=== PATIENT | male | born 1990 | race Hispanic/Latino ===

== ENCOUNTER 2020-04-25 22:41 | Emergency (ER) | payer BC ==
[2020-04-25] MEDS ORDERED: HYDROCODONE/APAP 7.5/325 MG TAB ONE (23:06)
--- NOTE | 2020-04-26 00:11 | ER ---
Nurse's Notes [facility] Name: Max Ortega Age: 30 yrs Sex: Male : 1990 Arrival Date: 04/25/2020 Time: 22:43 Bed 19 Private MD: ALEXANDRA ARMENTA Diagnosis: Sprain right ankle Presentation: 04/25 22:55 Chief complaint: Patient states: he was walking "angrily" to catch his dogs which had bb escaped when he twisted his ankle causing him to fall incident happened approx 20 mins [employer] pt c/o right ankle pain. Coronavirus screen: At this time, the client does not indicate any symptoms associated with coronavirus-19. Ebola Screen: No symptoms or risks identified at this time. Initial Sepsis Screen: Does the patient meet any 2 criteria? No. Patient's initial sepsis screen is negative. Does the patient have a suspected source of infection? No. Patient's initial sepsis screen is negative. Risk Assessment: Do you want to hurt yourself or someone else? Patient reports no desire to harm self or others. Onset of symptoms was April 25, 2020. 22:55 Method Of Arrival: Wheelchair bb 22:55 Acuity: MARY 4 bb Triage Assessment: 23:00 General: Appears in no apparent distress. uncomfortable, Behavior is calm, cooperative, rr5 appropriate for age. Historical: - Allergies: 22:58 No Known Allergies; bb - Home Meds: 22:58 Metoprolol Tartrate Oral [Active]; claritan [Active]; Zyrtec Oral [Active]; bb - PMHx: 22:58 Hypertension; seasonal allergies; bb - PSHx: 22:58 Knee surgery; bb - Immunization history:: Adult Immunizations up to date. - Social history:: Smoking status: Patient reports the use of cigarette tobacco products, denies chronic smoking, but will smoke occasionally, cigars, Patient uses alcohol, Patient/guardian denies using street drugs. Screenin:00 Abuse screen: Denies threats or abuse. Denies injuries from another. Nutritional rr5 screening: No deficits noted. Tuberculosis screening: No symptoms or risk factors identified. Fall Risk Fall in past 12 months (25 points). Total Luz Fall Scale indicates Low Risk Score (25-44 pts). Fall prevention measures have been instituted. Side Rails Up X 2 Frequent Obs/Assesments occuring Family Present and informed to notify staff if they need to leave bedside As available Patient and Family Educated on Fall Prevention Program and strategies. Assessment: 23:00 General: Appears in no apparent distress. uncomfortable, Behavior is calm, cooperative, rr5 appropriate for age. 23:00 Pain: Complains of pain in right ankle Pain currently is 5 out of 10 on a pain scale. rr5 Quality of pain is described as aching, Pain began suddenly, Is intermittent. Neuro: Level of Consciousness is awake, alert, obeys commands, Oriented to person, place, time, situation. Cardiovascular: Capillary refill < 3 seconds Patient's skin is warm and dry. Respiratory: Airway is patent Respiratory effort is even, unlabored, Respiratory pattern is regular, symmetrical. GI: No signs and/or symptoms were reported involving the gastrointestinal system. : No signs and/or symptoms were reported regarding the genitourinary system. EENT: No signs and/or symptoms were reported regarding the EENT system. Derm: Skin is intact, is healthy with good turgor, Skin temperature is warm. Musculoskeletal: Capillary refill < 3 seconds, Swelling present in right ankle. 04/26 00:00 Reassessment: Patient appears in no apparent distress at this time. Patient is alert, rr5 oriented x 3, equal unlabored respirations, skin warm/dry/pink. awaiting for Xray result. 00:47 Reassessment: Patient appears in no apparent distress at this time. Patient is alert, rr5 oriented x 3, equal unlabored respirations, skin warm/dry/pink. discharge instruction given and explained without complaints made. Vital Signs: 04/25 22:55 BP 154 / 86; Pulse 95; Resp 16 S; Temp 98.1(O); Pulse Ox 100% on R/A; Weight 158.76 kg bb (R); Height 6 ft. 0 in. (182.88 cm) (R); Pain 6/10; 04/26 00:00 BP 121 / 75; Pulse 90; Resp 19; Pulse Ox 99% ; rr5 00:30 BP 131 / 62; Pulse 85; Resp 17; Pulse Ox 99% ; rr5 04/25 22:55 Body Mass Index 47.47 (158.76 kg, 182.88 cm) bb ED Course: 04/25 22:43 Patient arrived in ED. am2 22:43 ALEXANDRA ARMENTA is Private Physician. am2 22:47 Ildefonso River MD is Attending Physician. pkbrian 22:53 Lenny Shah, RN is Primary Nurse. rr5 22:57 Triage completed. bb 22:58 Arm band placed on Patient placed in an exam room, on a stretcher, on pulse oximetry. bb Family accompanied patient. 23:00 Patient has correct armband on for positive identification. Bed in low position. Call rr5 light in reach. 23:23 Ankle Right 3 View XRAY In Process Unspecified. EDMS 04/26 00:40 Orthoglass splint: Posterior short lleg splint applied on right leg. oe 00:48 No provider procedures requiring assistance completed. Patient did not have IV access rr5 during this emergency room visit. Administered Medications: 04/25 22:55 Drug: [place] (7.5 mg-325 mg) 1 tabs {Note: rass 0.} Route: PO; rr5 04/26 00:50 Follow up: Response: No adverse reaction; Pain is decreased; RASS: Alert and Calm (0) rr5 Outcome: 00:10 Discharge ordered by . pkl 00:40 Discharged to home ambulatory, via wheelchair, with crutches. rr5 00:40 Condition: stable rr5 00:40 Discharge instructions given to patient, Instructed on discharge instructions, follow up and referral plans. Demonstrated understanding of instructions, follow-up care. 00:41 Patient left the ED. rr5 Signatures: Dispatcher [employer] EDSC Ildefonso River MD MD pkAria Lora, RN RN Otoniel Gandhi Amanda am2 Lenny Shah, RN RN rr5
--- NOTE | 2020-04-26 00:12 | EDPHYS ---
Physician Documentation [facility] Name: Max Ortega Age: 30 yrs Sex: Male : 1990 Arrival Date: 04/25/2020 Time: 22:43 Bed 19 Private MD: ALEXANDRA ARMENTA ED Physician Ildefonso River HPI: 04/26 00:03 This 30 yrs old Male presents to ER via Wheelchair with complaints of Ankle pkl Injury. 00:03 The patient presents with an injury, pain, that is acute. Onset: The symptoms/episode pkl began/occurred just prior to arrival. Context: resulted from the patient falling, twisted his right ankle. Associated signs and symptoms: The patient has no apparent associated signs or symptoms. Historical: - Allergies: 04/25 22:58 No Known Allergies; bb - Home Meds: 22:58 Metoprolol Tartrate Oral [Active]; claritan [Active]; Zyrtec Oral [Active]; bb - PMHx: 22:58 Hypertension; seasonal allergies; bb - PSHx: 22:58 Knee surgery; bb - Immunization history:: Adult Immunizations up to date. - Social history:: Smoking status: Patient reports the use of cigarette tobacco products, denies chronic smoking, but will smoke occasionally, cigars, Patient uses alcohol, Patient/guardian denies using street drugs. ROS: 04/26 00:03 Eyes: Negative for injury, pain, redness, and discharge, ENT: Negative for injury, pkl pain, and discharge, Neck: Negative for injury, pain, and swelling, Cardiovascular: Negative for chest pain, palpitations, and edema, Respiratory: Negative for shortness of breath, cough, wheezing, and pleuritic chest pain, Abdomen/GI: Negative for abdominal pain, nausea, vomiting, diarrhea, and constipation, Back: Negative for injury and pain, : Negative for injury, bleeding, discharge, and swelling, Skin: Negative for injury, rash, and discoloration. MS/extremity: Positive for pain, swelling, tenderness, of the right ankle. Exam: 00:03 Head/Face: Normocephalic, atraumatic. Eyes: Pupils equal round and reactive to light, pkl extra-ocular motions intact. Lids and lashes normal. Conjunctiva and sclera are non-icteric and not injected. Cornea within normal limits. Periorbital areas with no swelling, redness, or edema. ENT: Nares patent. No nasal discharge, no septal abnormalities noted. Tympanic membranes are normal and external auditory canals are clear. Oropharynx with no redness, swelling, or masses, exudates, or evidence of obstruction, uvula midline. Mucous membranes moist. Neck: Trachea midline, no thyromegaly or masses palpated, and no cervical lymphadenopathy. Supple, full range of motion without nuchal rigidity, or vertebral point tenderness. No Meningismus. Chest/axilla: Normal chest wall appearance and motion. Nontender with no deformity. No lesions are appreciated. Cardiovascular: Regular rate and rhythm with a normal S1 and S2. No gallops, murmurs, or rubs. Normal PMI, no JVD. No pulse deficits. Respiratory: Lungs have equal breath sounds bilaterally, clear to auscultation and percussion. No rales, rhonchi or wheezes noted. No increased work of breathing, no retractions or nasal flaring. Abdomen/GI: Soft, non-tender, with normal bowel sounds. No distension or tympany. No guarding or rebound. No evidence of tenderness throughout. Back: No spinal tenderness. No costovertebral tenderness. Full range of motion. Skin: Warm, dry with normal turgor. Normal color with no rashes, no lesions, and no evidence of cellulitis. Neuro: Awake and alert, GCS 15, oriented to person, place, time, and situation. Cranial nerves II-XII grossly intact. Motor strength 5/5 in all extremities. Sensory grossly intact. Cerebellar exam normal. Normal gait. 00:03 Musculoskeletal/extremity: Extremities: grossly normal except: noted in the right ankle: pain, swelling, tenderness. Vital Signs: 04/25 22:55 BP 154 / 86; Pulse 95; Resp 16 S; Temp 98.1(O); Pulse Ox 100% on R/A; Weight 158.76 kg bb (R); Height 6 ft. 0 in. (182.88 cm) (R); Pain /10; 04/26 00:00 BP 121 / 75; Pulse 90; Resp 19; Pulse Ox 99% ; rr5 00:30 BP 131 / 62; Pulse 85; Resp 17; Pulse Ox 99% ; rr5 04/25 22:55 Body Mass Index 47.47 (158.76 kg, 182.88 cm) bb Procedures: 00:03 Splinting: Splint applied to right ankle using short leg posterior splint. applied by [facility] nurse. Examined by me, post splint application: neurovascular intact, 2+ distal pulses palpable, brisk capillary refill noted, Patient tolerated well. MDM: 04/25 22:47 Patient medically screened. pk 04/26 00:03 Data reviewed: vital signs, nurses notes, radiologic studies, plain films. [facility] 04/25 22:53 Order name: Ankle Right 3 View XRAY pk 04/26 00:02 Order name: Splint - Ankle: Posterior; Complete Time: 00:38 pkl 04/26 00:02 Order name: Crutches; Complete Time: 00:38 pk Administered Medications: 04/25 22:55 Drug: [place] (7.5 mg-325 mg) 1 tabs {Note: rass 0.} Route: PO; rr5 04/26 00:50 Follow up: Response: No adverse reaction; Pain is decreased; RASS: Alert and Calm (0) rr5 Disposition: 04/26/20 00:10 Discharged to Home. Impression: Sprain right ankle. - Condition is Stable. - Prescriptions for Ultram 50 mg Oral Tablet - take 1 tablet by ORAL route every 8 hours As needed; 15 tablet. - Medication Reconciliation Form, Thank You Letter, Antibiotic Education, Prescription Opioid Use, Work release form form. - Follow up: Private Physician; When: 2 - 3 days; Reason: Re-evaluation by your physician. - Problem is new. - Symptoms have improved. Signatures: Dispatcher [employer] EDOK Ildefonso River MD MD Aria Lora, RN RN Lenny Diaz, RN RN rr5 Corrections: (The following items were deleted from the chart) 00:41 00:10 04/26/2020 00:10 Discharged to Home. Impression: Sprain right ankle. Condition is rr5 Stable. Forms are Medication Reconciliation Form, Thank You Letter, Antibiotic Education, Prescription Opioid Use. Follow up: Private Physician; When: 2 - 3 days; Reason: Re-evaluation by your physician. Problem is new. Symptoms have improved. pk
[2020-04-26 05:15] VITALS: BP 154/86; TEMP 98.1; O2SAT 100
--- NOTE | 2020-04-26 08:38 | RAD REPORT ---
EXAM DESCRIPTION: RAD - Ankle Right 3 View - 04/25/2020 11:23 pm CLINICAL HISTORY: Right ankle pain status post injury FINDINGS: No fracture or dislocation is seen. Lateral soft tissue swelling
== END 2020-04-26 00:41 | disposition home or self-care (01) ==
LOC: ER 22:41
DX: S93.401A Sprain of unspecified ligament of right ankle, initial encounter (principal); W19.XXXA Unspecified fall, initial encounter; Y93.9 Activity, unspecified; Y92.9 Unspecified place or not applicable; I10 Essential (primary) hypertension; J30.2 Other seasonal allergic rhinitis; F17.290 Nicotine dependence, other tobacco product, uncomplicated
CPT/HCPCS: 99284